=== PATIENT | female | born 1985 | race Caucasian/White ===

== ENCOUNTER → 2017-12-28 14:42 | Outpatient (CLI) | payer OTHER, SELFPAY ==
[2017-12-28 15:12] LABS: Add Manual Diff / Slide Review NO; Basophils Percent Auto 0.8 % (0-2); Eosinophils Percent Auto 1.1 % (2-4); Hematocrit 37.5 % (36-46); Hemoglobin 12.7 g/dL (12.0-16.0); Lymphocytes Percent Auto 17.1 % (25-40); Mean Corpuscular HGB Conc 33.7 % (30-36); Mean Corpuscular Volume 94.7 fL (80-100); Monocytes Percent Auto 4.4 % (3-14); Neutrophils Absolute Auto 8100 /uL (3000-5900); Neutrophils Percent Auto 76.6 % (50-75); Platelet Count 236 X10^3/uL (150-400); Red Blood Cell Count 3.96 X10^6/uL (4.0-5.2); Red Cell Distribution Width 12.2 % (11.6-14.8); White Blood Cell Count 10.5 X10^3/uL (4.5-11.0)
[2017-12-28 16:48] LABS: Hepatitis B Surface Antigen NEGATIVE s/c (NEGATIVE)
[2017-12-28 17:05] LABS: HIV 1 and 2 Antibody NEGATIVE (NEGATIVE); Hep C Virus Ab w/Reflex Quant NEGATIVE s/c (NEGATIVE)
[2017-12-28 18:52] LABS: Appearance Urine UA CLEAR; Bilirubin Urine UA NEGATIVE (NEGATIVE); Color Urine UA YELLOW; Glucose Urine UA NEGATIVE (Normal); Ketones Urine UA NEGATIVE (NEGATIVE); Leukocyte Esterase Urine UA NEGATIVE (NEGATIVE); Nitrite Urine UA Negative (Negative); Occult Blood Urine UA 2+ (Negative); Protein Urine UA NEGATIVE (Negative); Urobilinogen Urine UA 0.2 E.U./dL (0.2)
[2017-12-31 15:02] LABS: Rapid Plasma Reagin NON REACTIVE
== END ==
PROVIDERS: PCP Specialist; Visit Provider Specialist
DX: Z34.01 Encounter for supervision of normal first pregnancy, first trimester (principal); Z3A.01 Less than 8 weeks gestation of pregnancy
CPT/HCPCS: 36415; 80055; 81003; 86695; 86696; 86703; 86787; 86803; 86850; 86900; 86901; 87086

== ENCOUNTER 2018-01-21 19:01 | Emergency (ER) | payer OTHER, SELFPAY ==
[2018-01-21 19:04] VITALS: BP 124/74; PULSE 79; RESP 15; TEMP 36.7; O2SAT 99; BMI 24.2
--- NOTE | 2018-01-21 19:40 | ED_ITS ---
HPI - Headache General Chief Complaint: Headache Stated Complaint: MIGRAIN, 14WKS PREG Time Seen by Provider: 01/21/18 19:05 Source: patient and family Mode of arrival: ambulatory Limitations: no limitations History of Present Illness HPI Narrative: 32-year-old female at 14 weeks presents with a chief complaint of a headache over the past few days. She denies any injury nor fever or chills. She admittedly has been eating and drinking less than normal. She has had some runny nose, sneezing and cough as well. She has tried some Tylenol in the occasional antihistamine with minimal improvement. She denies any vaginal bleeding or discharge. She has no abdominal pain or pelvic pain. She denies any significant provocation, palliation MD Complaint: headache Onset (ago): minute(s) Onset description: gradual Relieving factors: nothing Exacerbating factors: none Context: occurred at rest Treatments prior to arrival: acetaminophen Related Data Home Medications Medication Instructions Recorded Confirmed 1 tab PO DAILY 12/28/17 12/28/17 vitamin,calcium,apmwngbq-nadr-wqkxt acid tablet Allergies Allergy/AdvReac Type Severity Reaction Status Date / Time No Known Drug Allergies Allergy Verified 01/21/18 19:04 Review of Systems Review of Systems All systems reviewed & are unremarkable except as noted in HPI and below Constitutional Denies chills, Denies fever(s), Reports headache(s), Denies lethargy and Denies weakness Eyes Denies change in vision, Denies eye discharge, Denies irritation and Denies loss of vision ENT Ears, Nose, Mouth, and Throat: Denies change in voice, Reports headache(s), Denies neck pain and Denies sore throat Cardiovascular Denies chest pain, Denies irregular heart rhythm, Denies lightheadedness, Denies palpitations, Denies dyspnea, Denies dyspnea on exertion and Denies orthopnea Respiratory Denies cough, Denies dyspnea, Denies dyspnea on exertion and Denies wheezing Gastrointestinal Gastrointestinal: Denies abdominal pain, Denies change in bowel habits, Denies diarrhea, Denies nausea and Denies vomiting Genitourinary Denies hematuria, Denies flank pain, Denies urinary incontinence and Denies urinary urgency Musculoskeletal Denies neck pain Integumentary/Breasts Denies pruritus, Denies erythema, Denies rash and Denies wounds Neurologic Denies confusion, Reports headache(s), Denies loss of vision and Denies weakness Psychiatric Denies anxiety, Denies confusion, Denies depression, Denies homicidal ideation and Denies suicidal ideation Endocrine Denies palpitations Hematologic/Lymphatic Denies easy bruising Allergic/Immunologic Denies wheezing PFSH Social History Smoking Status: Never smoker Exam Narrative Exam Narrative: GEN: AOx3 and in mild distress EYES: Pupils are equal, round, and reactive to light and accommodation. Extraoccular muscles are intact bilaterally. There is no subconjunctival hemorrhage or exudate. CHEST: Lungs are clear to auscultation bilaterally and free of wheezes, rales, or rhonchi. Heart rate is regular rhythm, there are no murmurs, clicks, rubs, or gallops. There is no chest wall tenderness. ABD: Abdomen is soft and nontender. There is no guarding or rebound. Bowel sounds are normal in all 4 quadrants. There is no mass or organomegaly. EXT: Full painless ROM of all extremities with no loss of sensation or strength. SKIN: Warm, pink, and dry. No erythema or rash Initial Vital Signs Initial Vital Signs: Vital Signs Temperature 98.0 F 01/21/18 19:04 Pulse Rate 79 01/21/18 19:04 Respiratory Rate 15 01/21/18 19:04 Blood Pressure 124/74 01/21/18 19:04 Pulse Oximetry 99 01/21/18 19:04 Course Orders Ordered: Discontinued Medications Acetaminophen (Tylenol) 975 mg PO NOW ONE Stop: 01/21/18 21:52 Last Admin: 01/21/18 22:20 Dose: 975 mg Sodium Chloride (Normal Saline 0.9%) 1,000 mls @ 1,000 mls/hr IV BOLUS ONE Stop: 01/21/18 22:50 Last Admin: 01/21/18 22:20 Dose: 1,000 mls/hr Metoclopramide HCl (Reglan) 10 mg IV NOW ONE Stop: 01/21/18 21:52 Last Admin: 01/21/18 22:21 Dose: 10 mg Reevaluation(s) Reevaluation #1: Patient has a near complete resolution of symptoms after above- stated therapies Vital Signs - 8 hr 01/21/18 23:20 Pulse Rate 79 Respiratory Rate 16 Blood Pressure 107/63 Pulse Oximetry 100 Discharge Plan Departure Patient Disposition: Home Clinical Impression: Headache Discharge Date/Time: 01/21/18 23:21 Interventions: ED Discharge Assessment Last Done: 01/21/18 23:20 Instructions: DI for Headache Activity Restrictions/Additional Instructions: *You have been diagnosed with [ headache ] *What to do: *Take medications as directed: Tylenol, antihistamines, drink plenty of fluids *Follow up with your primary care provider in 2-3 days, call for an appointment. Let them know you were seen in the Emergency Department and that we ask that you be seen in follow up *Return to ER if you should have any new, worsening or concerning symptoms Prescriptions: No Action prenat.vits,lorne,guv-napr-xnmmx [ Vitamin] tablet 1 tab PO DAILY RF: 0
[2018-01-21] MEDS: ACETAMINOPHEN 325 MG TABLET 975 MG PO (22:20)
[2018-01-21] MEDS: SODIUM CHLORIDE 0.9% 1,000 ML 1000 ML IV (22:20)
[2018-01-21] MEDS: METOCLOPRAMIDE 10 MG/2 ML INJ IV (22:21)
[2018-01-21 23:20] VITALS: BP 107/63; PULSE 79; RESP 16; O2SAT 100
== END 2018-01-21 23:21 | disposition home or self-care (01) ==
PROVIDERS: Emergency Provider Emergency Medicine; PCP Nurse Practitioner Adult Health
DX: R51 Headache (principal)
CPT/HCPCS: 36591; 96361; 96374; 99282; 99284; J2765

== ENCOUNTER → 2018-03-09 09:16 | Outpatient (CLI) | payer OTHER, SELFPAY ==
--- NOTE | 2018-03-09 09:18 | DI.US.S_ITS ---
PROCEDURE: US OB >= 14 WEEKS FETUS INDICATIONS: ANATOMY OUTSIDE/PRIOR DATING DATA: Last menstrual period (LMP): 10/14/17 LMP-based estimated date of delivery ([place]): 07/21/18. First dating scan (date and location): 08/04/17. Estimated date of delivery ([place]) from first dating scan: 07/18/18. TECHNIQUE: Real-time scanning was performed of the fetus, with image documentation and biometric measurements. Endovaginal scanning: No COMPARISON: [facility] [employer], , OB >= 14 WEEKS FETUS, 02/10/2018, 14:04. FINDINGS: General: A single living intrauterine gestation is present. Presentation: Transverse. Placenta: Placental position is posterior, without previa. Amniotic fluid index: 17.4 cm, normal range is 5-24 cm. heart rate: 140 beats per minute. Maternal cervical canal: 4.9 cm long. Normal lower limit is 2.5 cm. biometrics: Biparietal diameter: 21 weeks 4 days Head circumference: 21 weeks 5 days Abdominal circumference: 21 weeks 1 day Femur length: 21 weeks 6 days Estimated gestational age from initial scan: 21 weeks 2 days Composite gestational age from present scan: 21 weeks 4 days Estimated weight and percentile: 429 g; 56 percentile Measurement variability for biometric dating: +/- 7 days from 14 weeks to 15 weeks 6 days gestation, +/- 10 days from 16 weeks to 21 weeks 6 days gestation, +/- 2 weeks from 22 weeks to 27 weeks 6 days gestation, +/- 3 weeks for 28 weeks gestation or later. weight reference: 4500 g or EFW >90/95% is considered macrosomia or large for gestational age. EFW <10% is small for gestational age. EFW 5% or less is considered intra-uterine growth restriction. Anatomic survey: Neuro: Ventricles are non-dilated at less than 10 mm. Cisterna magna is normal at 3-11 mm. Cerebellum is normal in size and morphology. Nuchal skin fold: Normal at less than 6 mm between 14-21 weeks gestational age. Face: Nose and lips, facial profile are normal. Spine: No evidence for spina bifida. Heart: 4-chambered heart is present, with normal ventricular outflow tracts. Diaphragm: Diaphragm is intact. Stomach: Left-sided stomach is present. Kidneys: No hydronephrosis. Normal is less than 5 mm in 2nd trimester, less than 7 mm in 3rd trimester. Cord: 3-vessel cord has orthotopic insertion. Bladder: Normal in size. Extremities: All 4 extremities identified. Mid anterior maternal uterine fibroid measuring 29 mm. IMPRESSION: 1. Single living IUP redemonstrated and interval growth is normal. 2. Normal anatomic survey. 3. Uterine fibroid measuring 29 mm. Dictated by: Kuldip MCCORD Interpreted: Brad Veronica MD on 03/09/2018 at 13:49 Approved by: Brad Veronica M.D. on 03/09/2018 at 15:27
== END ==
PROVIDERS: PCP Nurse Practitioner Adult Health; Visit Provider Specialist
DX: Z36.89 Encounter for other specified antenatal screening (principal); Z3A.21 21 weeks gestation of pregnancy
CPT/HCPCS: 76811

== ENCOUNTER → 2018-04-06 11:52 | Outpatient (CLI) | payer OTHER, SELFPAY ==
[2018-04-06 13:53] LABS: Hematocrit 34.5 % (36-46); Hemoglobin 11.8 g/dL (12.0-16.0)
[2018-04-06 14:54] LABS: GTT (PREG) 1 Hour PP 50gm Dose 68 mg/dL (76-139)
== END ==
PROVIDERS: PCP Nurse Practitioner Adult Health; Visit Provider Specialist
DX: Z3A.24 24 weeks gestation of pregnancy (principal)
CPT/HCPCS: 36415; 82950; 85014; 85018

== ENCOUNTER → 2018-06-23 12:05 | Outpatient (CLI) | payer OTHER, SELFPAY ==
[2018-06-24 11:41] LABS: Strep Grp B PCR POS for Grp B Strep
== END ==
PROVIDERS: PCP Nurse Practitioner Adult Health; Visit Provider Specialist
DX: Z3A.36 36 weeks gestation of pregnancy (principal)
CPT/HCPCS: 87653

== ENCOUNTER 2018-07-22 09:25 | Outpatient (CLI) | payer OTHER, SELFPAY ==
--- NOTE | 2018-07-22 10:24 | PM.OBTRLD ---
Visit Information Visit Information Date of evaluation: 07/22/18 Primary OB Provider: Bridget Giron Reason for Evaluation: Yes non-stress test non-stress test reason: other (Postdates) Vital Signs Vital Signs: Blood pressure 100/55 PFSH Social History Smoking Status: Never smoker Evaluation Evaluation Baseline heart rate: 145 Variability: Moderate (11-25) monitor accelerations: Present monitor decelerations: Absent Contraction Frequency (minutes): 0 Category of Tracing: I Diagnosis, Plan/Disposition Final Diagnosis (1) 40 weeks gestation of : Current Visit: Yes Status: Acute Plan/Disposition Plan: Reactive nonstress test follow-up in 4 days OB Disposition: home
== END 2018-07-22 10:34 | disposition home or self-care (01) ==
LOC: LABOR 10:30 → OB 07-23 13:19
PROVIDERS: PCP Nurse Practitioner Adult Health; Visit Provider Specialist
DX: Z34.03 Encounter for supervision of normal first pregnancy, third trimester (principal); Z3A.40 40 weeks gestation of pregnancy
CPT/HCPCS: 59025; G0378; G0379

== ENCOUNTER 2018-07-26 18:37 | Inpatient (IN) | payer OTHER, SELFPAY ==
[2018-07-26] MEDS: miSOPROStol 25 MCG TABLET VAG ×2 (19:47→23:44)
[2018-07-26 19:48] LABS: Add Manual Diff / Slide Review NO; Basophils Absolute Auto 100 /uL (0-100); Basophils Percent Auto 0.7 % (0-2); Eosinophils Absolute Auto 100 /uL (0-450); Eosinophils Percent Auto 0.8 % (2-4); Hematocrit 38.3 % (36-46); Hemoglobin 12.8 g/dL (12.0-16.0); Lymphocytes Absolute Auto 1900 /uL (1100-4500); Lymphocytes Percent Auto 16.6 % (25-40); Mean Corpuscular HGB Conc 33.5 % (30-36); Mean Corpuscular Hemoglobin 31.2 PG (26-34); Mean Corpuscular Volume 93.2 fL (80-100); Monocytes Absolute Auto 600 /uL (0-900); Monocytes Percent Auto 5.1 % (3-14); Neutrophils Absolute Auto 9000 /uL (1500-7000); Neutrophils Percent Auto 76.8 % (50-75); Platelet Count 173 X10^3/uL (150-400); Red Blood Cell Count 4.11 X10^6/uL (4.0-5.2); Red Cell Distribution Width 12.6 % (11.6-14.8); White Blood Cell Count 11.7 X10^3/uL (4.5-11.0)
[2018-07-26] MEDS: CALCIUM CARBONATE 500 MG TAB 1000 MG PO (19:52)
--- NOTE | 2018-07-26 20:08 | P.HPOB_ITS ---
OB HPI Date/Time Date of admission: 07/26/18 Date Patient Seen: 07/26/18 Time Patient Seen: 19:59 History of Present Condition Chief complaint: PREGANANCY : 1 Para: 0 Estimated Date of Delivery: 07/21/18 Estimated Gestational Age (weeks): 40 Narrative: Abimbola Packer is a 33 year old female admitted for induction for postdates Indications Indication for induction OB: post dates History of Present care: good care, initiated at week # (11), number of visits (12) and pounds weight gain (42) Dating criteria: other (IV F transfer) Ultrasounds: normal mid trimester US Obstetrical complications: none Medical complications: none Preadmission Labs Blood type: O (+) positive -: Antibody screen: negative, GBS status: positive, HBsAG: negative, HIV: negative, HSV 1: positive, HSV 2: positive and RPR/VDLR: negative -: Rubella: immune and Varicella: immune HCAB: negative 1 hr GTT: 68 Evaluation Evaluation Baseline heart rate: 140 Variability: Moderate (11-25) monitor accelerations: Present monitor decelerations: Absent Contraction Frequency (minutes): 0 Category of Tracing: I Cervical dilation (cm): 0 Cervical effacement (%): 80 station: -2 Laboratory results: Laboratory Tests 07/26/18 19:35 WBC 11.7 H RBC 4.11 Hgb 12.8 Hct 38.3 MCV 93.2 MCH 31.2 MCHC 33.5 RDW 12.6 Plt Count 173 Neut % (Auto) 76.8 H Lymph % (Auto) 16.6 L [place] % (Auto) 5.1 Eos % (Auto) 0.8 L Baso % (Auto) 0.7 Neut # (Auto) 9000 H Lymph # (Auto) 1900 [place] # (Auto) 600 Eos # (Auto) 100 Baso # (Auto) 100 PFSH Social History Smoking Status: Never smoker Social History Smoking Status: Never smoker Meds Home Medications Medication Instructions Recorded Confirmed Type 1 tab PO DAILY 12/28/17 12/28/17 History vitamin,calcium,vurqyrwe-mtoz-npwnz acid tablet ondansetron 4 mg disintegrating 4 mg PO Q6H PRN #10 tab 02/02/18 Rx tablet acyclovir 400 mg tablet 400 mg PO DAILY #10 tab 07/16/18 Rx Allergies Allergy/AdvReac Type Severity Reaction Status Date / Time No Known Drug Allergies Allergy Verified 01/21/18 19:04 Review of Systems Review of Systems Patient denies any signs or symptoms of preeclampsia. She denies any leakage of fluid. Good movement. All systems reviewed & are unremarkable except as noted in HPI and below Exam Vital Signs (past 8 hours): Blood pressure 128/82, Narrative Exam Narrative: HEENT exam within normal limits. Lungs are clear to auscultation and percussion. Heart is regular rate and rhythm no S3-S4 or murmurs. Abdomen is soft. is vertex. Extremities without edema and nontender. Objective Labs Result Diagrams: 07/26/18 19:35 Labs: Laboratory Results - last 24 hr 07/26/18 19:35 WBC 11.7 H RBC 4.11 Hgb 12.8 Hct 38.3 MCV 93.2 MCH 31.2 MCHC 33.5 RDW 12.6 Plt Count 173 Neut % (Auto) 76.8 H Lymph % (Auto) 16.6 L [place] % (Auto) 5.1 Eos % (Auto) 0.8 L Baso % (Auto) 0.7 Neut # (Auto) 9000 H Lymph # (Auto) 1900 [place] # (Auto) 600 Eos # (Auto) 100 Baso # (Auto) 100
[2018-07-26 20:18] VITALS: BP 117/77
[2018-07-26] MEDS: PENICILLIN G POTASSIUM 5,000,000 UNIT in DEXTROSE 5% IN WATER 250 ML IV (21:33)
[2018-07-26] MEDS: LACTATED RINGERS 1,000 ML 100 ML IV (21:34)
[2018-07-26] MEDS: ZOLPIDEM 5 MG TABLET PO (21:36)
[2018-07-27] MEDS: PENICILLIN G POTASSIUM 3,000,000 UNIT/50 ML FROZ.PIGGY 100 UNIT IV ×6 (01:39→21:31)
[2018-07-27] MEDS: miSOPROStol 25 MCG TABLET VAG (04:07)
[2018-07-27] MEDS: LACTATED RINGERS 1,000 ML 100 ML IV ×4 (08:34→15:21)
[2018-07-27] MEDS: OXYTOCIN PREMIX 30 UNIT/500 ML PLAST..BAG IV (08:34)
[2018-07-27] MEDS: miSOPROStol 200 MCG TABLET 800 MCG PR (22:42)
[2018-07-27 23:09] LABS: Add Manual Diff / Slide Review NO; Basophils Absolute Auto 100 /uL (0-100); Basophils Percent Auto 0.7 % (0-2); Eosinophils Absolute Auto 0 /uL (0-450); Eosinophils Percent Auto 0.1 % (2-4); Hematocrit 34.6 % (36-46); Hemoglobin 11.7 g/dL (12.0-16.0); Lymphocytes Absolute Auto 1000 /uL (1100-4500); Lymphocytes Percent Auto 7.5 % (25-40); Mean Corpuscular HGB Conc 33.9 % (30-36); Mean Corpuscular Hemoglobin 31.3 PG (26-34); Mean Corpuscular Volume 92.5 fL (80-100); Monocytes Absolute Auto 700 /uL (0-900); Monocytes Percent Auto 4.8 % (3-14); Neutrophils Absolute Auto 12000 /uL (1500-7000); Neutrophils Percent Auto 86.9 % (50-75); Platelet Count 149 X10^3/uL (150-400); Red Blood Cell Count 3.74 X10^6/uL (4.0-5.2); Red Cell Distribution Width 12.5 % (11.6-14.8); White Blood Cell Count 13.8 X10^3/uL (4.5-11.0)
[2018-07-27 23:13] LABS: INR 0.9 (0.9-1.3); Prothrombin Time 10.5 SECONDS (10.1-12.7)
--- NOTE | 2018-07-27 23:18 | PM.OBPRVD ---
Events: Labor Induction (Postdates) Delivery date: 07/27/18 Intrapartal events: Bleeding (Bloody urine and bloody amniotic fluid) Cervical ripening method: per misoprostal protocol Induction method: per pitocin protocol Delivery augmentation: rupture of membranes Delivery monitor: external FHT and external uterine Route of delivery: forceps Indication for instrumentation: nonreassuring FHR tracing (Late decelerations) L&D Laceration Description: Perineal - 3rd Degree (Partial Tear of the rectal capsule but not full tear of the muscle) Delivery repair: vicryl (0 ) and chromic (3- 0) Estimated blood loss (mL): 350 Anesthesia type: Epidural Narrative: Patient was admitted for induction for postdates. She received Cytotec x3. She was started on IV Pitocin. She was started on IV penicillin for positive group B strep culture. She was AROMed for clear fluid. Patient was given an epidural catheter for pain control. Just prior to beginning pushing the patient's urine became bloody. heart tones during 1st stage of labor were category 1 mostly with occasional episodes of category 2 tracing. The uterine contraction pattern was not regular throughout the labor. With pushing the heart tone baseline began increasing and she began having possible late decelerations although may just been from coupling of contractions. The amniotic fluid became bloody concerning for possible abruption. Decision was made to assist with expediting delivery by low forceps. The forceps were placed and the delivered over an intact perineum. The infant was placed on the maternal abdomen. After cord stopped pulsating the cord was clamped cut and cord bloods obtained. Abruption labs were drawn. The placenta delivered spontaneously, intact, 3 vessels. Patient had Pitocin run in through the IV and was given 800 mg of rectal Cytotec. The patient was found to have a partial third-degree tear. The capsule of the rectal sphincter was repaired with 2 0 Vicryl suture with 3 [id number] sutures. The rest of the tear was repaired in the usual 2 layer fashion with 3 0 chromic suture. Estimated blood loss 350 cc. The abruption labs were normal. is a baby boy with Apgars of 8 and 9. Weight is pending. [place] Baby 1: Infant gender: Male Presentation: vertex position: Right Occiput Anterior Placenta delivery description: Spontaneous cord vessel description: 3 Vessels score (1 min): 8 score (5 min): 9 Plan for aftercare: Routine care, monitor for bleeding.
--- NOTE | 2018-07-27 23:23 | P.PCNOB_ITS ---
Events: Labor Induction (Postdates) Delivery date: 07/27/18 Intrapartal events: Bleeding (Bloody urine and bloody amniotic fluid) Cervical ripening method: per misoprostal protocol Induction method: per pitocin protocol Delivery augmentation: rupture of membranes Delivery monitor: external FHT and external uterine Route of delivery: forceps Indication for instrumentation: nonreassuring FHR tracing (Late decelerations) L&D Laceration Description: Perineal - 3rd Degree (Partial Tear of the rectal capsule but not full tear of the muscle) Delivery repair: vicryl (0 ) and chromic (3- 0) Estimated blood loss (mL): 350 Anesthesia type: Epidural Narrative: Patient was admitted for induction for postdates. She received Cytotec x3. She was started on IV Pitocin. She was started on IV penicillin for positive group B strep culture. She was AROMed for clear fluid. Patient was given an epidural catheter for pain control. Just prior to beginning pushing the patient's urine became bloody. heart tones during 1st stage of labor were category 1 mostly with occasional episodes of category 2 tracing. The uterine contraction pattern was not regular throughout the labor. With pushing the heart tone baseline began increasing and she began having possible late decelerations although may just been from coupling of contractions. The amniotic fluid became bloody concerning for possible abrupt ion. Decision was made to assist with expediting delivery by low forceps. The forceps were placed and the infant delivered over an intact perineum. The was placed on the maternal abdomen. After cord stopped pulsating the cord was clamped cut and cord bloods obtained. Abruption labs were drawn. The placenta delivered spontaneously, intact, 3 vessels. Patient had Pitocin run in through the IV and was given 800 mg of rectal Cytotec. The patient was found to have a partial third-degree tear. The capsule of the rectal sphincter was repaired with 2 0 Vicryl suture with 3 [id number] sutures. The rest of the tear was repaired in the usual 2 layer fashion with 3 0 chromic suture. Estimated blood loss 350 cc. The abruption labs were normal. Infant is a baby boy with Apgars of 8 and 9. Weight is pending. [place] Baby 1: Infant gender: Male Presentation: vertex position: Right Occiput Anterior Placenta delivery description: Spontaneous cord vessel description: 3 Vessels score (1 min): 8 score (5 min): 9 Plan for aftercare: Routine care, monitor for bleeding.
[2018-07-27 23:28] LABS: Fibrinogen 381 mg/dL (211-428)
[2018-07-28 05:02] LABS: Add Manual Diff / Slide Review NO; Basophils Absolute Auto 0 /uL (0-100); Basophils Percent Auto 0.1 % (0-2); Eosinophils Absolute Auto 0 /uL (0-450); Eosinophils Percent Auto 0.1 % (2-4); Hemoglobin 9.1 g/dL (12.0-16.0); Lymphocytes Absolute Auto 1400 /uL (1100-4500); Lymphocytes Percent Auto 7.6 % (25-40); Mean Corpuscular HGB Conc 33.7 % (30-36); Mean Corpuscular Hemoglobin 31.4 PG (26-34); Monocytes Absolute Auto 800 /uL (0-900); Monocytes Percent Auto 4.5 % (3-14); Neutrophils Absolute Auto 15600 /uL (1500-7000); Neutrophils Percent Auto 87.7 % (50-75); Platelet Count 123 X10^3/uL (150-400); Red Cell Distribution Width 12.6 % (11.6-14.8); White Blood Cell Count 17.8 X10^3/uL (4.5-11.0)
[2018-07-28] MEDS: DOCUSATE 250 MG CAPSULE PO (11:12)
[2018-07-28] MEDS: IBUPROFEN 600 MG TABLET PO ×2 (11:13→18:18)
--- NOTE | 2018-07-28 17:06 | P.PNOB_ITS ---
Subjective - OB Patient comments: pain well controlled baby status: doing well feeding status: exclusively breast feeding Date Patient Seen: 07/28/18 Time Patient Seen: 17:04 Interval history: day 1. Exam Vital Signs (past 8 hours): Blood pressure 117/69, pulse of 84, temperature 97.5? Narrative Exam Narrative: Abdomen is soft, nontender. Uterus is firm, at U, nontender. Repair is intact. Extremities with trace edema and nontender Objective Labs Result Diagrams: 07/28/18 04:39 Labs: Laboratory Results - last 24 hr 07/27/18 07/27/18 07/27/18 23:00 23:00 23:00 WBC 13.8 H RBC 3.74 L Hgb 11.7 L Hct 34.6 L MCV 92.5 MCH 31.3 MCHC 33.9 RDW 12.5 Plt Count 149 L Neut % (Auto) 86.9 H Lymph % (Auto) 7.5 L [place] % (Auto) 4.8 Eos % (Auto) 0.1 L Baso % (Auto) 0.7 Neut # (Auto) 02731 H Lymph # (Auto) 1000 L [place] # (Auto) 700 Eos # (Auto) 0 Baso # (Auto) 100 PT 10.5 INR 0.9 Fibrinogen 381 07/28/18 04:39 WBC 17.8 H RBC 2.90 L Hgb 9.1 L Hct 27.0 L MCV 93.0 MCH 31.4 MCHC 33.7 RDW 12.6 Plt Count 123 L Neut % (Auto) 87.7 H Lymph % (Auto) 7.6 L [place] % (Auto) 4.5 Eos % (Auto) 0.1 L Baso % (Auto) 0.1 Neut # (Auto) 55923 H Lymph # (Auto) 1400 [place] # (Auto) 800 Eos # (Auto) 0 Baso # (Auto) 0 PT INR Fibrinogen Assessment & Plan (1) 40 weeks gestation of : Status: Acute Current Visit: No (2) Elective induction of labor planned: Status: Acute Current Visit: Yes (3) Vaginal delivery: Problem details: Normal exam. Routine care. Patient will be started on iron Status: Acute Current Visit: Yes (4) Acute blood loss anemia: Status: Acute Current Visit: Yes Time Spent With Patient Total time spent is greater than 50% in coordination of care (as documented) at patient's floor/unit and/or counseling patient: 15-24 minutes
[2018-07-29 07:49] VITALS: BP 117/77; PULSE 80; RESP 18; TEMP 36.3
[2018-07-29] MEDS: DOCUSATE 250 MG CAPSULE PO (09:51)
[2018-07-29] MEDS: FERROUS GLUCONATE 324 MG TABLET PO (10:13)
[2018-07-29] MEDS: IBUPROFEN 600 MG TABLET PO (10:14)
--- NOTE | 2018-07-31 20:09 | P.DS_ITS ---
Discharge Providers Date of admission: 07/26/18 18:37 Discharge Date: 07/29/18 Primary care physician: CHERI Valdes Consults: 07/26/18 19:39 Consult to Anesthesiology Urgent Comment: Consulting Provider: Anesthesiologist Reason for consultation: Epidural Has provider been notified: No 07/28/18 03:15 Consult to Lasting Machine Operator Bed Routine Comment: Discharge provider: Chuyita Kan MD Summary Date Patient Seen: 07/29/18 Time Patient Seen: 08:45 Procedures: Cytotec cervical ripening Pitocin induction of labor Epidural analgesia Forceps assisted vaginal delivery Third-degree Laceration repair Hospital Course: Patient is a 33-year-old 1 para 1 who presented on 07/27/2018 for Cytotec cervical ripening due to postdates. She received 3 doses of Cytotec. On the morning of 07/28/2018 Pitocin was started. Artificial rupture of membranes was performed. An epidural was given for pain management. During the 2nd stage of labor the heart rate tracing became worrisome and a forceps were applied. Her course was unremarkable and she was discharged home on day # 1. was going well. Bleeding was tapering. Pain was well controlled. Peripartum Data Infant Delivery Method: Assisted Delivery (Forceps) Laceration description: Perineal - 3rd Degree Episiotomy description: None Procedures: Cytotec cervical ripening Pitocin induction of labor Artificial rupture of membranes Forceps assisted vaginal delivery Third-degree laceration repair complications: none Discharge Diagnosis (1) 40 weeks gestation of : Status: Acute (2) Elective induction of labor planned: Status: Acute (3) Vaginal delivery: Status: Acute Problem Details: Normal exam. Routine care. Patient will be started on iron (4) Acute blood loss anemia: Status: Acute Status at Discharge Cognitive/behavioral status at discharge: oriented Functional status at discharge: independent ambulation Overall status at discharge: patient is progressing back to baseline Time Spent with Patient Total time spent providing and/or coordinating discharge services: Less than 30 minutes Objective Labs Result Diagrams: 07/28/18 04:39 Discharge Plan Discharge Plan Patient Disposition: Home Discharge Med Rec/Prescriptions Prescriptions: New hydrocodone-acetaminophen 5-325 mg Tablet 2 tab PO Q4HR PRN (Reason: Pain, Severe (7-10)) Qty: 30 RF: 0 docusate sodium 250 mg Capsule 250 mg PO DAILY Qty: 30 RF: 0 ferrous gluconate 324 mg (38 mg iron) Tablet 324 mg PO BID Qty: 60 RF: 0 ibuprofen 600 mg Tablet 600 mg PO Q6HR PRN (Reason: Pain, Mild (1-3)) Qty: 30 RF: 0 Continued prenat.vits,lorne,ako-cffe-pzbrz [ Vitamin] tablet 1 tab PO DAILY RF: 0 Discontinued ondansetron [Zofran ODT] 4 mg tablet,disintegrating 4 mg PO Q6H PRN (Reason: nausea and vomiting) Qty: 10 RF: 0 acyclovir 400 mg tablet 400 mg PO DAILY Qty: 10 RF: 0 Follow up/Referrals: Bridget Giron MD [Physician] - 08/26/18 11:30 am Steph Reilly ARNP [Primary Care Provider] - Provider Discharge Instructions Diet: Regular Activity: Nothing in vagina for 4 weeks Skin/Wound/Dressing Care Report to your healthcare provider any signs of infection, such as:: chills, fever and increased pain Visit Report/Discharge Packet Stand Alone Forms: Discharge: Care Visit Report Forms: Stroke Signs & Symptoms Discharge Data Primary Care Provider: Steph Reilly Attending Provider: Bridget Giron Admit Date/Time: 07/26/18 18:37 Discharges patient from system. Discharge Date/Time: 07/29/18 10:45
== END 2018-07-29 10:45 | disposition home or self-care (01) | DRG 768 ==
PROVIDERS: Admitting Provider Specialist; PCP Nurse Practitioner Adult Health; Visit Provider Specialist
DX: O48.0 Post-term pregnancy (principal); D62 Acute posthemorrhagic anemia; O99.824 Streptococcus B carrier state complicating childbirth; Z3A.40 40 weeks gestation of pregnancy; Z37.0 Single live birth
CPT/HCPCS: 01967; 36415; 59050; 59400; 85025; 85384; 85610; 86850; 86900; 86901; G0379; J2540; J2590; J3010; S0191

== ENCOUNTER → 2020-11-28 17:07 | Outpatient (CLI) | payer OTHER, SELFPAY ==
[2020-11-28 21:18] LABS: Urine N gonorrhoeae NOT DETECTED
[2020-11-28 21:22] LABS: Urine Chlamydia NOT DETECTED
== END ==
PROVIDERS: PCP Nurse Practitioner Adult Health; Referring Provider Specialist; Visit Provider Specialist
DX: Z34.81 Encounter for supervision of other normal pregnancy, first trimester (principal); Z3A.10 10 weeks gestation of pregnancy
CPT/HCPCS: 87491; 87591

== ENCOUNTER → 2020-12-01 10:40 | Outpatient (CLI) | payer OTHER, SELFPAY ==
[2020-12-01 11:09] LABS: Add Manual Diff / Slide Review NO; Basophils Absolute Auto 0 /uL (0-100); Basophils Percent Auto 0.6 % (0-2); Eosinophils Absolute Auto 100 /uL (0-450); Eosinophils Percent Auto 2.6 % (2-4); Hematocrit 36.1 % (36-46); Hemoglobin 12.2 g/dL (12.0-16.0); Lymphocytes Absolute Auto 1300 /uL (1100-4500); Mean Corpuscular HGB Conc 33.7 % (30-36); Mean Corpuscular Volume 94.8 fL (80-100); Monocytes Absolute Auto 400 /uL (0-900); Monocytes Percent Auto 6.4 % (3-14); Neutrophils Absolute Auto 3800 /uL (1500-7000); Neutrophils Percent Auto 67.4 % (50-75); Platelet Count 184 X10^3/uL (150-400); Red Cell Distribution Width 12.2 % (11.6-14.8); White Blood Cell Count 5.7 X10^3/uL (4.5-11.0)
[2020-12-01 11:20] LABS: Appearance Urine UA CLEAR; Bilirubin Urine UA NEGATIVE (NEGATIVE); Color Urine UA YELLOW; Glucose Urine UA NEGATIVE (Negative); Ketones Urine UA NEGATIVE (NEGATIVE); Leukocyte Esterase Urine UA 1+ (NEGATIVE); Nitrite Urine UA NEGATIVE (Negative); Occult Blood Urine UA 1+ (Negative); Protein Urine UA NEGATIVE (Negative); Urobilinogen Urine UA 0.2 E.U./dL (0.2)
[2020-12-01 11:35] LABS: pH Urine UA 7.5 (4.5-8.0)
[2020-12-01 11:36] LABS: Bacteria Urine None Seen
[2020-12-01 11:51] LABS: RBC Urine 0-1/HPF (0-5/HPF)
[2020-12-01 11:52] LABS: Culture Indicated Urine Cult Not Indicated; Squamous Epithelial Cell Urine 5-10 /HPF (0-5/HPF); WBC Urine 5-10/HPF (0-5/HPF)
[2020-12-02 10:58] LABS: RPR Screen Non Reactive (Non Reactive)
[2020-12-02 12:08] LABS: Varicella IgG Antibody 1434 index (Immune >165)
[2020-12-03 17:28] LABS: Hepatitis B Surface Antigen NEGATIVE s/c (NEGATIVE); Rubella Antibody IgG 95.3 IU/mL (>15)
[2020-12-03 17:30] LABS: HIV 1 & 2 Ab/Ag 4th Gen Combo NEGATIVE (NEGATIVE); Hep C Virus Ab w/Reflex Quant NEGATIVE s/c (NEGATIVE)
== END ==
PROVIDERS: PCP Nurse Practitioner Adult Health; Referring Provider Specialist; Visit Provider Specialist
DX: Z34.81 Encounter for supervision of other normal pregnancy, first trimester (principal)
CPT/HCPCS: 36415; 80055; 81003; 81015; 86787; 86803; 86850; 86900; 86901; 87086; 87389

== ENCOUNTER → 2021-01-23 15:25 | Outpatient (CLI) | payer OTHER, SELFPAY ==
[2021-01-25 19:37] LABS: AFP Value 99.9 ng/mL (.); Gest Age on Col Date 19.6 weeks (.); Gestational Age Ultrasound (.); Insulin Dep Diabetes No (.); OSBR Risk 1IN 842 (.); Results Report (.); Test Results *Screen Negative* (.)
== END ==
PROVIDERS: PCP Nurse Practitioner Adult Health; Referring Provider Specialist; Visit Provider Specialist
DX: Z34.82 Encounter for supervision of other normal pregnancy, second trimester (principal); Z3A.19 19 weeks gestation of pregnancy
CPT/HCPCS: 36415; 82105

== ENCOUNTER → 2021-01-29 10:42 | Outpatient (CLI) | payer OTHER, SELFPAY ==
--- NOTE | 2021-01-29 10:43 | DI.US.S_ITS ---
PROCEDURE: US OB >= 14 WEEKS FETUS INDICATIONS: 2 WEEK ANATOMY OUTSIDE/PRIOR DATING DATA: Last menstrual period (LMP): 08/18/2020. LMP-based estimated date of delivery ([place]): 05/25/2021 . First dating scan (date and location): 01/29/2021 . Estimated date of delivery ([place]) from first dating scan: 06/11/2021 . TECHNIQUE: Real-time scanning was performed of the fetus, with image documentation and biometric measurements. Endovaginal scanning: No COMPARISON: [facility], , OB <= 14 WEEKS FETUS, 11/28/2020, 17:12. FINDINGS: General: A single living intrauterine gestation is present. Presentation: Variable. Placenta: Placental position is anterior , without previa. Amniotic fluid index: 12.5 cm, normal range is 5-24 cm. heart rate: 143 beats per minute. Maternal cervical canal: 4.9 cm long. Normal lower limit is 2.5 cm. biometrics: Biparietal diameter: 20 weeks 4 days Head circumference: 20 weeks 5 days Abdominal circumference: 21 weeks 6 days Femur length: 20 weeks 6 days Estimated gestational age from initial scan: not applicable. Composite gestational age from present scan: 21 weeks Estimated weight and percentile: 411 g; 1st percentile based on LMP. Measurement variability for biometric dating: +/- 7 days from 14 weeks to 15 weeks 6 days gestation, +/- 10 days from 16 weeks to 21 weeks 6 days gestation, +/- 2 weeks from 22 weeks to 27 weeks 6 days gestation, +/- 3 weeks for 28 weeks gestation or later. weight reference: 4500 g or EFW >90/95% is considered macrosomia or large for gestational age. EFW <10% is small for gestational age. EFW 5% or less is considered intra-uterine growth restriction. Anatomic survey: Neuro: Ventricles are non-dilated at less than 10 mm. Cisterna magna is normal at 3-11 mm. Cerebellum is normal in size and morphology. Nuchal skin fold: Normal at less than 6 mm between 14-21 weeks gestational age. Face: Nose and lips, facial profile are normal. Spine: No evidence for spina bifida. Heart: 4-chambered heart is present, with normal ventricular outflow tracts. Diaphragm: Diaphragm is intact. Stomach: Left-sided stomach is present. Kidneys: No hydronephrosis. Normal is less than 5 mm in 2nd trimester, less than 7 mm in 3rd trimester. Cord: 3-vessel cord has orthotopic insertion. Bladder: Normal in size. Extremities: All 4 extremities identified. IMPRESSION: 1. 21 week 0 day single living IUP corresponding to ultrasound [place] of 06/11/2021. 2. Normal anatomic survey. Dictated by: Kuldip MCCORD Interpreted: Rosita May MD on 01/29/2021 at 12:55 Transcribed by: GALE on 01/29/2021 at 12:59 Approved by: Rosita May M.D. on 01/29/2021 at 13:30
== END ==
PROVIDERS: PCP Nurse Practitioner Adult Health; Referring Provider Specialist; Visit Provider Specialist
DX: Z34.82 Encounter for supervision of other normal pregnancy, second trimester (principal); Z3A.20 20 weeks gestation of pregnancy
CPT/HCPCS: 76811

== ENCOUNTER → 2021-02-20 17:08 | Outpatient (CLI) | payer OTHER, SELFPAY | PROVIDERS: PCP Nurse Practitioner Adult Health; Visit Provider Specialist | DX: Z34.82 Encounter for supervision of other normal pregnancy, second trimester (principal); Z3A.23 23 weeks gestation of pregnancy | CPT/HCPCS: 87086 ==

== ENCOUNTER → 2021-03-04 10:06 | Outpatient (CLI) | payer OTHER, SELFPAY ==
[2021-03-04 12:27] LABS: GTT (PREG) 1 Hour PP 50gm Dose 114 mg/dL (76-139)
[2021-03-04 12:35] LABS: Hematocrit 34.5 % (36-46); Hemoglobin 11.7 g/dL (12.0-16.0)
== END ==
PROVIDERS: PCP Nurse Practitioner Adult Health; Referring Provider Specialist; Visit Provider Specialist
DX: Z34.82 Encounter for supervision of other normal pregnancy, second trimester (principal); Z3A.26 26 weeks gestation of pregnancy
CPT/HCPCS: 36415; 82950; 85014; 85018

== ENCOUNTER → 2021-05-22 15:51 | Outpatient (CLI) | payer OTHER, SELFPAY ==
[2021-05-23 11:05] LABS: Strep Grp B PCR POS for Grp B Strep
== END ==
PROVIDERS: PCP Nurse Practitioner Adult Health; Visit Provider Specialist
DX: Z34.83 Encounter for supervision of other normal pregnancy, third trimester (principal); Z3A.36 36 weeks gestation of pregnancy
CPT/HCPCS: 87653

== ENCOUNTER 2021-06-19 16:07 | Outpatient (CLI) | payer OTHER, SELFPAY ==
--- NOTE | 2021-06-19 16:46 | PM.OBTRLD ---
Visit Information Visit Information Date of evaluation: 06/19/21 Primary OB Provider: Bridget Giron Reason for Evaluation: Yes non-stress test non-stress test reason: other (Post dates) [facility] Medical History (Updated 06/19/21 @ 16:47 by Bridget Giron MD) Acute blood loss anemia AMA (advanced maternal age) multigravida 35+ COVID-19 (~08/2020) Endometriosis (~06/2016) History of in vitro fertilization (~09/27/20) Migraine Post depression (~07/2018) (spontaneous vaginal delivery) (~07/27/18) Vaginal delivery Wrist fracture (~1994) Surgical History (Updated 11/26/20 @ 14:03 by Eli Bettencourt, RN) History of breast augmentation (~09/2014) History of laparoscopy (~06/2016) History of tonsillectomy S/P eye surgery (~07/2010) [place] teeth extracted (~10/2002) Family History (Updated 11/26/20 @ 13:35 by Eli Bettencourt, RN) Father No problems noted. Mother No problems noted. Grandfather No problems noted. Grandmother No problems noted. Grandfather No problems noted. Grandmother No problems noted. Brother No problems noted. Sister No problems noted. Social History marital status: number of children: 1 household members: spouse and children lives independently: Yes pets and animals: Yes (Dogs) education level: college (Post Grad Studies ) occupational status: employed ([employer] and work with the ) current occupational exposures/hazards: Yes melany/baptist: Holiness special melany needs: No Smoking Status: Never smoker second hand exposure: No alcohol intake: former (pre- : X 1/month) substance use type: does not use Evaluation Evaluation Baseline heart rate: 120 Variability: Moderate (11-25) monitor accelerations: Present Monitor Decelerations: Absent Contraction Frequency (minutes): 5 Uterine Contraction Intensity: Mild Category of Tracing: Reactive Status: Category l Diagnosis, Plan/Disposition Final Diagnosis (1) 40 weeks gestation of : Status: Acute Plan/Disposition Plan: Reactive nonstress test. Patient scheduled for induction tomorrow OB Disposition: home
== END 2021-06-19 16:44 | disposition home or self-care (01) ==
LOC: OB 06-20 07:15
PROVIDERS: PCP Nurse Practitioner Adult Health; Referring Provider Specialist; Visit Provider Specialist
DX: O48.0 Post-term pregnancy (principal); Z3A.40 40 weeks gestation of pregnancy
CPT/HCPCS: 59025; G0378; G0379

== ENCOUNTER 2021-06-20 08:10 | Inpatient (IN) | payer OTHER, SELFPAY ==
[2021-06-20 08:36] VITALS: BP 120/72
[2021-06-20] MEDS: LACTATED RINGERS 1,000 ML 100 ML IV ×3 (09:45→23:11)
[2021-06-20] MEDS: OXYTOCIN PREMIX 30 UNIT/500 ML PLAST..BAG IV (09:53)
[2021-06-20 10:05] LABS: COVID19 -Nasal RAPID Negative (Negative)
[2021-06-20 10:20] LABS: Add Manual Diff / Slide Review NO; Basophils Absolute Auto 100 /uL (0-100); Basophils Percent Auto 0.5 % (0-2); Eosinophils Absolute Auto 100 /uL (0-450); Eosinophils Percent Auto 1.1 % (2-4); Hematocrit 33.2 % (36-46); Hemoglobin 11.3 g/dL (12.0-16.0); Lymphocytes Absolute Auto 1800 /uL (1100-4500); Lymphocytes Percent Auto 16.8 % (25-40); Mean Corpuscular HGB Conc 34.1 % (30-36); Mean Corpuscular Hemoglobin 31.2 PG (26-34); Mean Corpuscular Volume 91.6 fL (80-100); Monocytes Absolute Auto 500 /uL (0-900); Monocytes Percent Auto 4.7 % (3-14); Neutrophils Absolute Auto 8200 /uL (1500-7000); Neutrophils Percent Auto 76.9 % (50-75); Red Blood Cell Count 3.62 X10^6/uL (4.0-5.2); White Blood Cell Count 10.7 X10^3/uL (4.5-11.0)
[2021-06-20 10:45] LABS: Platelet Count 133 X10^3/uL (150-400)
[2021-06-20] MEDS: PENICILLIN G POTASSIUM 5,000,000 UNIT in DEXTROSE 5% IN WATER 250 ML IV (11:25)
--- NOTE | 2021-06-20 12:57 | P.HPOB_ITS ---
OB HPI Date/Time Date of admission: 06/20/21 Date Patient Seen: 06/20/21 Time Patient Seen: 09:30 History of Present Condition Chief complaint: induction of labor : 2 Para: 1 Estimated Date of Delivery: 06/15/21 Estimated Gestational Age (weeks): 40 Narrative: Abimbola Packer is a 36 year old female admitted for postdates induction Indications Indication for induction OB: post dates History of Present care: good care, initiated at week # (11), number of visits (13) and pounds weight gain (50) Dating criteria: other (In-vitro fertilization) Ultrasounds: normal mid trimester US Obstetrical complications: none Medical complications: none Preadmission Labs Blood type: O (+) positive -: Antibody screen: negative, GBS status: positive, HBsAG: negative, HIV: negative, HSV 2: positive and RPR/VDLR: negative -: Chlamydia screen: not detected and Gonorrhea screen: not detected -: Rubella: immune and Varicella: immune HCAB: negative Quad screen: Normal 1 hr GTT: 114 Prior (ies) History: 07/27/2018 41 week gestation it induction 8 lb male forceps delivery with epidural Evaluation Evaluation Baseline heart rate: 120 Variability: Moderate (11-25) monitor accelerations: Present Monitor Decelerations: Absent Contraction Frequency (minutes): 5 Uterine Contraction Intensity: Mild Category of Tracing: Reactive Status: Category l Dilation (cm): 3 Effacement (%): 80 station: -1 Position of cervix: posterior Consistency: soft [facility] Medical History (Updated 06/19/21 @ 16:47 by Bridget Giron MD) Acute blood loss anemia AMA (advanced maternal age) multigravida 35+ COVID-19 (~08/2020) Endometriosis (~06/2016) History of in vitro fertilization (~09/27/20) Migraine Post depression (~07/2018) (spontaneous vaginal delivery) (~07/27/18) Vaginal delivery Wrist fracture (~1994) Surgical History (Updated 11/26/20 @ 14:03 by Eli Bettecnourt RN) History of breast augmentation (~09/2014) History of laparoscopy (~06/2016) History of tonsillectomy S/P eye surgery (~07/2010) [place] teeth extracted (~10/2002) Family History (Updated 11/26/20 @ 13:35 by Eli Bettencourt RN) Father No problems noted. Mother No problems noted. Grandfather No problems noted. Grandmother No problems noted. Grandfather No problems noted. Grandmother No problems noted. Brother No problems noted. Sister No problems noted. Social History marital status: number of children: 1 household members: spouse and children lives independently: Yes pets and animals: Yes (Dogs) education level: college (Post Grad Studies ) occupational status: employed ([employer] and work with the ) current occupational exposures/hazards: Yes melany/moravian: Sabianism special melany needs: No Smoking Status: Never smoker second hand exposure: No alcohol intake: former (pre- : X 1/month) substance use type: does not use Meds Home Medications and Allergies Home Medications Medication Instructions Recorded Confirmed Type prenat.vits,lorne,olu-sqvp-vpsiq 1 tab PO DAILY 12/28/17 05/29/21 History ( Vitamin) escitalopram oxalate 5 mg tablet 5 mg PO DAILY 11/26/20 05/29/21 History (Lexapro) jdsauiwbeh-enfgcxxdcakga-yuskbwjz 1 cap PO Q6H PRN #20 cap 12/26/20 05/29/21 Rx 50 mg-300 mg-40 mg capsule (Fioricet) cetirizine 10 mg capsule (Zyrtec) 10 mg PO DAILY PRN 12/26/20 05/29/21 History fluconazole 150 mg tablet 150 mg PO Q3D #2 tab 01/23/21 05/29/21 Rx (Diflucan) valacyclovir 500 mg tablet 500 mg PO DAILY #30 tab 05/22/21 05/29/21 Rx (Valtrex) Allergies Allergy/AdvReac Type Severity Reaction Status Date / Time No Known Drug Allergies Allergy Verified 11/26/20 13:09 Review of Systems Review of Systems Narrative: Patient denies headaches, scotomata, epigastric pain. Good movement. No leakage of fluid. No current symptoms of herpes outbreak OB Exam Narrative Exam Narrative: Blood pressure 120/72, pulse 75, temperature 36.3? HEENT exam within normal limits. Lungs are clear to auscultation percussion. Heart is regular rate and rhythm no S3-S4 or murmurs. Abdomen is gravid. Fetus is vertex. Ultrasound yesterday estimated weight 9 lb with OP position. Extremities without edema and nontender Objective Labs Result Diagrams: 06/20/21 09:25 Labs: Laboratory Results - last 24 hr 06/20/21 06/20/21 06/20/21 09:25 09:25 09:44 WBC 10.7 RBC 3.62 L Hgb 11.3 L Hct 33.2 L MCV 91.6 MCH 31.2 MCHC 34.1 RDW 14.0 Plt Count 133 L Neut % (Auto) 76.9 H Lymph % (Auto) 16.8 L [place] % (Auto) 4.7 Eos % (Auto) 1.1 L Baso % (Auto) 0.5 Neut # (Auto) 8200 H Lymph # (Auto) 1800 [place] # (Auto) 500 Eos # (Auto) 100 Baso # (Auto) 100 SARS-CoV-2 (PCR) Negative Blood Type O Positive Antibody Screen Negative Assessment and Plan Assessment and Plan Assessment and Plan narrative: 40 weeks 5 days gestation for postdates induction. Patient will be started on IV penicillin for positive group B strep culture and Pitocin for induction. Patient plans an epidural when needed.
--- NOTE | 2021-06-20 14:38 | PM.OBPNLAB ---
Date/Time Date Patient Seen: 06/20/21 Time Patient Seen: 14:38 Pain Control Pain control: tolerating well Pelvic Exam Dilation (cm): 4 Effacement (%): 80 station: -1 Amniotic membrane status: Ruptured (AROM for thin meconium) Contractions Contractions on admission: regular Monitor mode: External Pitocin rate (mU/min): 12 Contraction frequency (min): 3 Contraction duration (min): 1 Contraction pattern: Regular Contraction intensity: Moderate Status status: Category l Heart Rate Baseline: 130 Monitor Accelerations: Present Monitor Decelerations: Absent Monitor Variability: Moderate Assessment and Plan Assessment: induction ongoing Comments: AROMed, continue Pitocin, epidural when patient requests
[2021-06-20] MEDS: ACETAMINOPHEN 325 MG TABLET 650 MG PO (14:57)
[2021-06-20] MEDS: PENICILLIN G POTASSIUM 3,000,000 UNIT/50 ML FROZ.PIGGY 100 UNIT IV ×2 (14:58→19:32)
[2021-06-20] MEDS: fentaNYL 100 MCG/2 ML INJ IV (16:29)
[2021-06-20] MEDS: FENT 2MCG/ML BUPIV 0.125% EPI 200 MCG/100 ML PLAST..BAG 13 MCG EPIDURAL (17:38)
--- NOTE | 2021-06-20 18:36 | PM.OBPNLAB ---
Date/Time Date Patient Seen: 06/20/21 Time Patient Seen: 18:36 Pain Control Pain control: epidural Pelvic Exam Dilation (cm): 8 Effacement (%): 90 station: -1 Amniotic membrane status: Ruptured (AROM for thin meconium) Contractions Monitor mode: External Pitocin rate (mU/min): 12 Contraction frequency (min): 3 Contraction duration (min): 1 Contraction pattern: Regular Contraction intensity: Strong/Firm Status status: Category l Heart Rate Baseline: 120 Monitor Accelerations: Present Monitor Decelerations: Absent Monitor Variability: Moderate Assessment and Plan Assessment: active labor Plan: continuous present management
[2021-06-20] MEDS: CALCIUM CARBONATE 500 MG TAB 1000 MG PO (20:29)
--- NOTE | 2021-06-20 22:57 | PM.OBPRVD ---
Labor & Delivery Delivery date: 06/20/21 Intrapartal Events: None Cervical ripening method: none Induction method: per pitocin protocol Delivery augmentation: rupture of membranes Delivery monitor: external FHT and external uterine Route of delivery: L&D Laceration Description: Perineal - 2nd Degree Delivery repair: chromic (3 0) Estimated blood loss (mL): 1,000 Anesthesia Type: Spinal Narrative: Patient arrived on Labor and delivery for postdates induction. She was started on Pitocin. She had AROM for thin meconium-stained fluid. She received 1 dose of sentinel than an epidural catheter for pain control. heart tones category 1 to category 2 throughout labor. The patient had a spontaneous delivery over an intact perineum. There was a 1 minute shoulder dystocia relieved with Vitaliy maneuver. The viable male was placed on maternal abdomen. After the cord stopped pulsating the cord was clamped, cut, and cord bloods obtained. The placenta delivered spontaneously, intact, with 3 vessels. The patient had uterine atony that finally responded to IV Pitocin bolus, uterine massage, and IM Methergine. There were no cervical or vaginal tears. A second-degree midline perineal tear was repaired with 3 0 chromic suture in the usual 2 layer fashion. Both infant mother doing well. Baby 1: gender: Male Presentation: vertex Position: Right Occiput Anterior Placenta delivery description: Spontaneous Cord Vessel Description: 3 Vessels score (1 min): 8 score (5 min): 9 weight: 8 lb 15.9 oz Plan for aftercare: Routine care
[2021-06-20] MEDS: METHYLERGONOVINE 0.2 MG/ML VIAL IM (23:11)
[2021-06-21] MEDS: DERMOPLAST SPRAY 20% 60 ML 1 SPRAY TOP
[2021-06-21 06:17] LABS: Add Manual Diff / Slide Review NO; Basophils Absolute Auto 0 /uL (0-100); Basophils Percent Auto 0.1 % (0-2); Eosinophils Absolute Auto 100 /uL (0-450); Eosinophils Percent Auto 0.4 % (2-4); Hematocrit 25.2 % (36-46); Hemoglobin 8.5 g/dL (12.0-16.0); Lymphocytes Absolute Auto 1400 /uL (1100-4500); Lymphocytes Percent Auto 10.4 % (25-40); Mean Corpuscular HGB Conc 33.8 % (30-36); Mean Corpuscular Volume 91.7 fL (80-100); Monocytes Absolute Auto 700 /uL (0-900); Monocytes Percent Auto 5.1 % (3-14); Neutrophils Absolute Auto 11400 /uL (1500-7000); Platelet Count 126 X10^3/uL (150-400); Red Blood Cell Count 2.74 X10^6/uL (4.0-5.2); Red Cell Distribution Width 14.2 % (11.6-14.8); White Blood Cell Count 13.5 X10^3/uL (4.5-11.0)
[2021-06-21] MEDS: IBUPROFEN 600 MG TABLET PO ×3 (06:34→12:37)
[2021-06-21] MEDS: ACETAMINOPHEN 325 MG TABLET 650 MG PO ×3 (06:34→12:37)
[2021-06-21] MEDS: FERROUS SULFATE 325 MG TABLET PO (08:59)
[2021-06-21] MEDS: PRENATAL VIT,CALC/IRON/FOLIC 1 TABLET 1 TAB PO (08:59)
--- NOTE | 2021-06-21 15:30 | PM.OBDS.1 ---
Discharge Providers Provider Date of admission: 06/20/21 08:10 Discharge Date: 06/21/21 Primary care physician: CHERI Valdes Consults: 06/20/21 08:40 Consult to Anesthesiology Urgent Comment: Consulting Provider: Anesthesiologist Reason for consultation: Epidural Has provider been notified: No 06/21/21 22:55 Consult to Eyewear Manufacturing Tech Routine Comment: Discharge provider: Bridget Giron MD Summary Hospital Course Date Patient Seen: 06/21/21 Time Patient Seen: 15:32 Diagnoses: 40 week gestation with spontaneous vaginal delivery and repair of second-degree tear Hospital Course: Patient was admitted for induction for postdates. She was started on Pitocin for induction. She received IV penicillin for positive group B strep culture and an epidural catheter for pain control. She had a spontaneous vaginal delivery with repair of a second-degree tear. Breast-feeding is going well. She denies any headaches, scotomata, epigastric pain. She is urinating and ambulating well. Bleeding is minimal. She denies any significant pain. Peripartum Data Infant Delivery Method: Natural Vaginal Laceration Description: Perineal - 2nd Degree Procedures: Pitocin induction, IV penicillin for positive group B strep culture, epidural catheter, spontaneous vaginal delivery with repair of second-degree tear complications: none [place] 1: Gender: Male Disposition of : home Discharge Diagnosis (1) Vaginal delivery: Status: Acute (2) Acute blood loss anemia: Status: Acute Status at Discharge Cognitive/behavioral status at discharge: oriented Functional status at discharge: independent ambulation Overall status at discharge: patient is progressing back to baseline Time Spent with Patient Time attestation: Total time spent providing and/or coordinating discharge services: Time spent: Less than 30 minutes Objective Labs Result Diagrams: 06/21/21 05:52 Labs: Laboratory Results - last 24 hr 06/21/21 05:52 WBC 13.5 H RBC 2.74 L Hgb 8.5 L Hct 25.2 L MCV 91.7 MCH 31.0 MCHC 33.8 RDW 14.2 Plt Count 126 L Neut % (Auto) 84.0 H Lymph % (Auto) 10.4 L [place] % (Auto) 5.1 Eos % (Auto) 0.4 L Baso % (Auto) 0.1 Neut # (Auto) 09179 H Lymph # (Auto) 1400 [place] # (Auto) 700 Eos # (Auto) 100 Baso # (Auto) 0 Exam Vital Signs (past 8 hours): Blood pressure 93/76, pulse of 87, temperature 98? Abdomen is soft, nontender. Uterus is firm, at U, nontender. Repair is intact. Mild lochia. Extremities with trace edema and nontender. Patient is Rh positive, rubella immune, received Tdap in the 3rd trimester. Discharge Plan Discharge Plan Patient Disposition: Home Discharge orders & Medications Prescriptions: New FE C Plus [id number] qj-mi-wyk-mg tablet 1 tab PO BEDTIME Qty: 30 0RF Continued escitalopram oxalate [Lexapro] 5 mg tablet 5 mg PO DAILY 0RF Zyrtec 10 mg capsule 10 mg PO DAILY PRN0RF xhmjnmxszy-msahhdstannao-oyzs [Fioricet] 50-300-40 mg capsule 1 cap PO Q6H PRN (Reason: headache) Qty: 20 0RF prenat.vits,lorne,lxx-pbgt-qtpfy [ Vitamin] tablet 1 tab PO DAILY 0RF Discontinued fluconazole [Diflucan] 150 mg tablet 150 mg PO Q3D Qty: 2 0RF valacyclovir [Valtrex] 500 mg tablet 500 mg PO DAILY Qty: 30 0RF Follow up/Referrals: Bridget Giron MD [Physician] - 1 Month (Please follow up with Dr. Giron on August 01 at 10:30AM. Please call the clinic with any questions. ) Steph Reilly ARNP [Primary Care Provider] - Diet/Activity/Treatments Diet: Regular Activity: Nothing in vagina for 6 weeks Skin/Wound/Dressing Care Report to your healthcare provider any signs of infection, such as:: chills, fever and increased pain Visit Report/Discharge Packet Stand Alone Forms: Discharge: Care Discharge Data Primary Care Provider: Steph Reilly
[2021-06-21 15:33] VITALS: BP 120/72; PULSE 84; RESP 17; TEMP 36.9
== END 2021-06-21 16:30 | disposition home or self-care (01) | DRG 806 ==
PROVIDERS: Admitting Provider Specialist; PCP Nurse Practitioner Adult Health; Referring Provider Specialist; Visit Provider Specialist
DX: O48.0 Post-term pregnancy (principal); D62 Acute posthemorrhagic anemia; Z37.0 Single live birth; Z3A.40 40 weeks gestation of pregnancy; O99.824 Streptococcus B carrier state complicating childbirth; O70.1 Second degree perineal laceration during delivery; O77.0 Labor and delivery complicated by meconium in amniotic fluid; O66.0 Obstructed labor due to shoulder dystocia; O90.81 Anemia of the puerperium; O76 Abnormality in fetal heart rate and rhythm complicating labor and delivery; Z20.822 Contact with and (suspected) exposure to COVID-19
CPT/HCPCS: 01967; 36415; 59050; 59400; 76815; 85025; 86850; 86900; 86901; 87635; C9803; G0379; J0171; J2210; J2540; J2590; J3010